=== PATIENT | female | born 2000 | race African-American/Black ===

== ENCOUNTER 2022-04-18 17:10 | Emergency (ER) | payer SELFPAY ==
[~2022-04-18] VITALS: Ht 172.7 cm; Wt 61.2 kg
--- NOTE | 2022-04-18 17:23 | NUR ---
BIB RA 77 IN A SITTING POSITION,FOUND CRAWLING AROUND A SIDEWALK NOT ANSWERRING QUESTIONS. PLACED ON BED AWAKE ALERT, BREATHING EVEN AND UNLABORED, STILL NOT ANSWERING QUESTIONS.
[2022-04-18] MEDS ORDERED: OLANZAPINE 10 MG VIAL IM ONE ×2 (18:00→18:04)
[2022-04-18] MEDS ORDERED: LORAZEPAM INJ 2 MG/ML VIAL IM ONE (18:00)
[2022-04-18] MEDS ORDERED: diphenhydrAMINE HCL 50 MG/ML VIAL IM ONE (18:00)
[2022-04-18] MEDS ORDERED: diphenhydrAMINE HCL 50 MG/ML VIAL ONE (18:04)
[2022-04-18] MEDS ORDERED: LORAZEPAM INJ 2 MG/ML VIAL ONE (18:05)
--- NOTE | 2022-04-18 18:30 | NUR ---
ECONOMICS CONSULTANT AT BEDSIDE.
--- NOTE | 2022-04-18 19:02 | NUR ---
URINE SAMPLE COLLECTED AND SENT TO LAB
[2022-04-18 19:30] LABS: CARBON DIOXIDE 27 mmol/L (21-32); CHLORIDE 103 mmol/L (98-107); CREATININE 0.9 mg/dL (0.6-1.3); GLUCOSE 94 mg/dL (74-106); POTASSIUM 3.3 mmol/L (3.5-5.1); SODIUM SERUM 137 mmol/L (136-145); UREA NITROGEN, BLOOD 10 mg/dL (7-18)
[2022-04-18 19:37] LABS: ALANINE AMINOTRANSFERASE 39 U/L (12-78); ALBUMIN 3.5 g/dL (3.4-5.0); ALCOHOL, BLOOD < 3 mg/dL (0-0); ALKALINE PHOSPHATASE 82 U/L (46-116); ASPARTATE AMINOTRANSFERASE 58 U/L (15-37); BILIRUBIN,DIRECT 0.2 mg/dL (0.0-0.2); BILIRUBIN,TOTAL 0.5 mg/dL (0.2-1.0); TOTAL PROTEIN, SERUM 7.6 g/dL (6.4-8.2)
[2022-04-18 19:38] LABS: ACETAMINOPHEN 0 ug/ml (10-30)
[2022-04-18 19:53] LABS: BASOPHILS # (AUTO) 0.1 K/uL (0.0-0.2); BASOPHILS % (AUTO) 0.6 % (0.0-2.0); EOSINOPHILS % (AUTO) 4.3 % (0.0-6.0); HEMATOCRIT 35 % (33-45); HEMOGLOBIN 11.5 g/dL (11.5-14.8); LYMPHOCYTES # (AUTO) 1.7 K/uL (0.8-4.8); LYMPHOCYTES % (AUTO) 17.8 % (20.0-44.0); MEAN CORPUSCULAR HGB CONC 33 g/dl (31.0-36.0); MEAN CORPUSCULAR VOLUME 93 fL (82-100); MONOCYTES # (AUTO) 1.2 K/uL (0.1-1.30); MONOCYTES % (AUTO) 12.4 % (2.0-12.0); NEUTROPHILS # (AUTO) 6.1 K/uL (1.8-8.9); NEUTROPHILS % (AUTO) 64.9 % (43.0-81.0); PLATELET COUNT (AUTO) 331 K/uL (150-450); RED BLOOD CELL COUNT(AUTO) 3.75 MIL/uL (4.0-5.2); WHITE BLOOD COUNT (AUTO) 9.4 K/uL (4.3-11.0)
[2022-04-18 20:43] LABS: BILIRUBIN,URINE NEGATIVE (NEGATIVE); COLOR,URINE YELLOW (YELLOW); LEUKOCYTE ESTERASE ,URINE MODERATE (NEGATIVE); NITRITE, URINE NEGATIVE (NEGATIVE); PROTEIN,URINE NEGATIVE (NEGATIVE); UGLUCOSE NEGATIVE (NEGATIVE); UROBILINOGEN,URINE 0.2 EU/dL (0.2)
[2022-04-18 21:37] LABS: BACTERIA,URINE 2+ /HPF (None Seen); WBC,URINE 21-50 /HPF (0-3)
[2022-04-18] MEDS ORDERED: NITROFURANTOIN/MONOHYDRATE MACROCRYSTALS 100 MG CAPSULE PO ONE (23:30)
--- NOTE | 2022-04-19 02:25 | NUR ---
PT SLEEPING IN BED. VSS.
[2022-04-19] MEDS ORDERED: NITROFURANTOIN/MONOHYDRATE MACROCRYSTALS 100 MG CAPSULE ONE ×2 (06:42→08:08)
--- NOTE | 2022-04-19 06:47 | NUR ---
PT SLEEPING IN BED; ARROUSABLE TO TOUCH BUT UNCOOPERATIVE. NOT ABLE TO TAKE PO MEDS / WATER AT THIS TIME. WILL TRY AGAIN LATER. VSS. RESPIRATIONS EVER AND NONLABORED ON ROOM AIR.
--- NOTE | 2022-04-19 14:20 | NUR ---
SW met with pt. at bedside. The pt. is currently a Justa Leblanc as pt. has not provided their name. The pt. appears unkempt, pt. is very drowsy. The pt. only engaged with SW for a moment and could not provide their name. SW will follow up with pt. at a later time.
--- NOTE | 2022-04-20 | NUR ---
PT IN BED AWOKEN AND PROVIDED WITH FOOD. PT STILL NOT ANSWERIG QUESTIONS AND DOES NOT GIVE OUT ANY INFORMATION ABOUT HER.
--- NOTE | 2022-04-20 04:30 | NUR ---
TRIED TO TALK TO PATIENT BUT PT IS NOT ANSWERING QUESTIONS. NO DISTRESS NOTED
--- NOTE | 2022-04-20 04:30 | NUR ---
ATTEMPTED TO GET VITAL SIGNS BUT PT IS REMOVING THE CUFF AND PULSE OX
--- NOTE | 2022-04-20 05:36 | NUR ---
ATTEMPTED TO ASK PT FOR INFORMATION, PT PT HER NAME IS "DAYANNA OBREGON" 2000. ADMITTING NOTIFIED.
--- NOTE | 2022-04-20 11:30 | NUR ---
Search Consultant Consult SW met with pt. at bedside. Pt. was covered with blanket and declined to engage in consult/ assessment by mumbling "no". SW will return to bedside to conduct consult at a later time.
--- NOTE | 2022-04-20 13:30 | NUR ---
SW attempted to conduct assessment but pt. was uncooperative. SW will attempt again later.
--- NOTE | 2022-04-20 14:10 | NUR ---
Overedger Consult LEXI consult was requested for pt. who was brought by EMS after being found on the street. Pt. is a 21 y.o. female who was admitted after she was found crawling around a sidewalk and unresponsive. LEXI met with pt. at bedside. The pt. appears disheveled and orientated x1. Pt. did not make eye contact and was uncooperative throughout assessment. The patient had irritable mood and labile affect. Pt. was previously unidentified and checked in as Justa Leblanc but was able to self-identify as Rebel, [place]. Pt. verbally refused to answer questions and requested SW to get away. Nurse supported SW in addressing pt.s needs (pt. requested a meal). SW was unable to attain answers re her demographic information, financial status, psychiatric dx. Pt. stated she was homeless and that she had no SI/HI (suicidal ideation/ homicidal ideation). DC plan: When asked about pt.s plans after being discharged pt. stated she was homeless. LEXI offered [place] resources in which pt. appeared agreeable. LEXI provided pt. with a TAP card with directions to the nearest [place] facility ([facility], [address] [place] [address]) as well as addiction resources, homeless resources, and mental health resources in which pt. accepted them. Pt. refused to sign the homeless patient waiver form, and was placed in her chart. ADDICTION RESOURCES For Drugs and Alcohol [facility] sober living Referrals For Rehabilitation once sober Address:[address] [place] [id number] [facility] [address] [place] [address] Detox/residential [facility] Substance Abuse Helpline ([facility]) Outpatient, residential treatment, recovery support for youth/adults [facility] www.actionfamilycounsKIP [employer].[facility] [place] Teen programs for drug/alcohol education and support Shane Marti Rolla. Program for adults, sliding scale provides support and education [facility] www.WindSim.org [place]; Detox/residential treatment programs; transition to sober living [facility] www.cri-help.org [place]; Outpatient and residential treatment programs; transition to sober living [facility] TEL: [phone] [facility] Osman Jimenez; Outpatient education and supportive programs for teens and adults [facility] www.oasiswomensrecvia christi hospitaly.org [place]; Residential treatment and work program for females only [facility] www.Smart [employer] [place]: Outpatient/residential treatment program for teens and young adults [facility] www.navos health.org [place] Detox, inpatient, outpatient for adults and youth [facility], [facility]. [place]; Outpatient programs and referrals to community residential programs. Alcoholics Anonymous -SFV information and meeting and scheduleswww.aa-intergroup.org Kp-Olux-Erfhkmq https://al-anon.org/ [place] support groups for family of alcoholics. Marijuana Anonymous www.madistrict6.org -SFV listing of meetings Narcotics Anonymous www.na.org SOBER LIVING RESOURCES [facility] www.soberhousing.net A non-profit agency that provides resources to recovery and sober living homes throughout [place], [place], [facility] Sober Living Homes: A Work in [facility], [facility]: [facility] [phone] [place], [place] [facility] Sober Living Homes: [facility] Counseling--Outpatient [facility] [address] [place] [address] (Specializes in in-depth psychotherapy for emotional distress: anxiety, depression, interpersonal conflicts, life transitions, childhood abuse) [facility] [address] [place] [address] (Assist with solving problem marital difficulties, separation & divorce, aging parents, & grief, chronic & terminal illness) [facility] [address] [place] [address] (Deal with loss & grief, anxiety, marital difficulties) Homebound/Mental Health Services [address] [facility] [address] [place] [address] (Provide in-home mental services to people who are incapable of leaving their homes) [facility] Senior Service[facility]Resource Center [address] [place] [address] [facility] [address] [place] [address] Mental Health Services [facility] Hospital[facility] [address] [place] [address] Services: Outpatient therapy for children, teens, young adults, adults, older adults, and families; Psychiatric services, medication support Psychiatric Outpatient Services [facility] Partial Hospitalization and Intensive Outpatient Program (Managed Care and [place] Only)[address] [facility] [phone] [facility] Partial Hospitalization and Outpatient [id number] [facility] [address] [place], [place] [phone] [facility] Mental Health [place] [id number] [facility] [address] [place], [place] [phone] [facility] Partial Hospitalization and Outpatient [id number] [place], [phone] Crisis and Hotline Telephone Numbers 24-Hour service unless stated [place] Crisis Hotlines: [facility] Mental Health/Crisis Line........170.243.4632 Suicide Prevention Center (24 Hours).......790.896.1974 Suicide Prevention Crisis Center.......450.229.4618 (24 Hours) Assaults Against Women Hotline.........519.623.9288 (24 Hours -- [facility]) Women and Children Crisis Correction...........[phone] (24 Hours) Child Abuse Hotline............851.962.5880 [facility] (24 Hours)..........[phone] Alcoholics Anonymous (24 Hours)..........[phone] Cocaine Anonymous (24 Hours)............[phone] Narcotics Anonymous (24 Hours)..........[phone] [facility] [address], [place] [address]
[2022-04-20 16:13] VITALS: BP 116/81
--- NOTE | 2022-04-20 16:14 | NUR ---
Patient discharged to home in stable condition. Written and verbal after care instructions given. Patient verbalizes understanding of instruction.
== END 2022-04-20 16:14 | disposition home or self-care (01) ==
LOC: EDBD 17:14 → ER 17:14
DX: F23 Brief psychotic disorder (principal); R45.6 Violent behavior; E87.6 Hypokalemia; F15.10 Other stimulant abuse, uncomplicated; N39.0 Urinary tract infection, site not specified
CPT/HCPCS: 99285; 96372 ×2; 85025; 80048; 87086; 80076; 84703; 81001; 36415; 80143; 80320; 80307; J2060; J1200; J3490; G0480